=== PATIENT | male | born 1955 | race Caucasian/White ===

== ENCOUNTER 2016-11-10 02:40 | Emergency (ER) | payer OTHER ==
[~2016-11-10] VITALS: Ht 182.9 cm; Wt 110.0 kg
[~2016-11-10 02:40] MED LIST: ALBUAER2 INH; ASPI81TA28 PO; ATOR-24 PO; B-COCAP2 PO; CMD3 PO; FLEC50TA PO; FURO80TA63 PO; GABA-113 PO; HYDR100T12 PO; INSDGI SC; IPRA1AER2 INH; LSN40 PO; METO100T14 PO; POTA1CAP2 PO; VANC1INJ IV; WARF7.5T PO
[2016-11-10 02:45] VITALS: TEMP 36.9; Ht 182.9 cm; Wt 110.0 kg
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
[2016-11-10] MEDS ORDERED: FENTANYL CITRATE INJ 50 MCG/1 ML 2 ML VIAL IV ONE (03:15)
[2016-11-10 04:00] LABS: INR 2.9 (0.9-1.1); PARTIAL THROMBOPLASTIN RATIO 1.6; PROTHROMBIN TIME (PATIENT) 32.7 SECONDS (9.0-12.0)
[2016-11-10] MEDS ORDERED: PROTHROMBIN COMP CONC- KCENTRA 2,500 UNIT in SYRINGE 0 ML IV STA (06:07)
[2016-11-10] MEDS ORDERED: PHYTONADIONE INJ 10 MG in SODIUM CHLORIDE 0.9% 50ML 50 ML IV ONE (06:15)
[2016-11-10] MEDS ORDERED: PROTHROMBIN COMP CONC- KCENTRA 2,500 UNIT in SYRINGE 0 ML IV ONE (06:30)
[2016-11-10 06:42] LABS: BASO % 0.4 %; BASO ABS # 0.05 K/uL (0-0.2); COMPLETE YES; HEMATOCRIT 36.6 % (42-52); IG% 0.4 %; LYMPH % 9.3 %; LYMPH ABS # 1.08 K/uL (1.2-3.4); MEAN CELL VOLUME 91.5 fL (80-100); MEAN CORPUSCULAR HEMOGLOBIN 29.5 pg (25-34); MEAN CORPUSCULAR HGB CONC 32.2 g/dl (32-36); MEAN PLATELET VOLUME 10.8 fL (7.4-10.4); MONO % 8.4 %; NEUT % 79.5 %; PLATELET COUNT 324 K/uL (130-400); WHITE BLOOD COUNT 11.65 K/uL (4.8-10.8)
[2016-11-10 06:47] VITALS: BP 160/126; PULSE 93; O2SAT 94
[2016-11-10 06:47] LABS: BUN/CREATININE RATIO 20.5 (10-20); CALCIUM 7.9 mg/dl (8.5-10.1); CREATININE 4.1 mg/dl (0.60-1.40); MAGNESIUM 2.4 mg/dl (1.8-2.4); POTASSIUM 5.8 mmol/L (3.5-5.1)
--- NOTE | 2016-11-10 07:27 | DIAGNOSTIC IMAGING REPORT ---
CT OF THE HEAD WITHOUT CONTRAST CLINICAL HISTORY: Trauma. COMPARISON STUDY: Head CT June 28, 2016. CT DOSE: 1228.53 mGy.cm TECHNIQUE: Helical axial images of the head were obtained without IV contrast. Automated exposure control was utilized for the study. FINDINGS: This exam is mildly compromised by motion artifact. There is a moderate to large mixed attenuation left subdural hematoma that measures 1.3 cm in thickness. This hematoma overlies the left cerebral convexity and layers along the left aspect of the tentorium as well as portions of the falx. There is significant associated mass effect with 1.3 cm of rightward midline shift and compression of the left lateral ventricle. Sulcal effacement is noted. Subfalcine shift is noted. Old infarcts within the right cerebral and cerebellar hemispheres are noted. Calcific density within the right cerebellar hemisphere suggests an old infarct. This is chronic. There is no calvarial fracture although sensitivity is diminished given motion artifact. There is mild polypoid mucosal thickening of the right maxillary sinus. IMPRESSION: 1. Moderate to large mixed attenuation left subdural hematoma with significant associated mass effect, including 1.3 cm of rightward midline shift, compression of the left lateral ventricle and subfalcine shift. Neurosurgical consultation is recommended. 2. Multiple old infarcts. 3. No calvarial fracture identified. Study mildly compromised by motion artifact. Electronically signed by: Joseph Lucio M.D. 11/10/2016 7:26 AM Dictated Date/Time: 11/10/2016 7:19 AM
--- NOTE | 2016-11-10 07:31 | DIAGNOSTIC IMAGING REPORT ---
RIGHT ANKLE 2 VIEWS CLINICAL HISTORY: Trauma and deformity. FINDINGS: AP and lateral views of the right ankle are obtained. No prior studies are available for comparison at the time of dictation. There is a comminuted fracture with distracted fragments involving the distal fibular shaft. There is likely a fracture involving the posterior tibial plafond. There is posterior dislocation of the talus at the tibiotalar joint. This is posteriorly distracted by at least 3 cm. There is significant associated joint effusion and overlying soft tissue edema. A plantar calcaneal enthesophyte is observed. IMPRESSION: Fracture/dislocation of the right ankle as above. Electronically signed by: Trey Gil M.D. 11/10/2016 7:30 AM Dictated Date/Time: 11/10/2016 7:28 AM
--- NOTE | 2016-11-10 07:36 | DIAGNOSTIC IMAGING REPORT ---
RIGHT ANKLE 2 VIEWS CLINICAL HISTORY: Postreduction examination. FINDINGS: AP and lateral views of the right ankle compared to study performed earlier the same day 11/10/2016.The examination is performed through a splint, obscuring fine bony detail. There is improved alignment of a comminuted fracture with distracted fragments involving the distal fibular shaft as compared to the earlier examination. There is also likely a fracture involving the posterior tibial plafond. There is persistent posterior dislocation of the talus at the tibiotalar joint which has improved from previous. The talus is distracted posteriorly by approximately 1.5 cm. There is also widening of the medial joint space by approximately 8 mm. There is significant associated joint effusion and overlying soft tissue edema. A plantar calcaneal enthesophyte is observed. IMPRESSION: Improved alignment of a fracture/dislocation of the right ankle as compared to today's earlier examination. See above. Electronically signed by: Trey Gil M.D. 11/10/2016 7:35 AM Dictated Date/Time: 11/10/2016 7:33 AM
[2017-01-15] MEDS ORDERED: CARV6.252 PO (11:10)
[2017-01-15] MEDS ORDERED: ACET-1256 PO (11:14)
[2017-01-15] MEDS ORDERED: LORA-741 PO (11:18)
[2017-01-15] MEDS ORDERED: insulin novolog (11:18)
[2017-01-15] MEDS ORDERED: LEVE250T PO (11:20)
[2017-01-15] MEDS ORDERED: SENN-61 PO (11:24)
[2017-01-15] MEDS ORDERED: PANT40TA PO (11:24)
[2017-01-15] MEDS ORDERED: QUET1TAB34 PO (11:24)
[2017-01-15] MEDS ORDERED: [UNRECOGNIZED DRUG - CODE] (11:24)
[2017-01-15] MEDS ORDERED: QUET1TAB30 PO (11:24)
[2017-01-15] MEDS ORDERED: [UNRECOGNIZED DRUG - OTHER] IV (11:34)
== END 2016-11-10 06:48 | disposition short-term general hospital (02) ==
LOC: C.EDB 02:41
DX: S06.5X0A Traumatic subdural hemorrhage without loss of consciousness, initial encounter (principal); S82.451A Displaced comminuted fracture of shaft of right fibula, initial encounter for closed fracture; S93.04XA Dislocation of right ankle joint, initial encounter; E66.9 Obesity, unspecified; E11.9 Type 2 diabetes mellitus without complications; I48.91 Unspecified atrial fibrillation; N18.6 End stage renal disease; I12.0 Hypertensive chronic kidney disease with stage 5 chronic kidney disease or end stage renal disease; J45.909 Unspecified asthma, uncomplicated; Z79.01 Long term (current) use of anticoagulants; Z79.4 Long term (current) use of insulin; Z79.82 Long term (current) use of aspirin; Z79.899 Other long term (current) drug therapy; Z99.2 Dependence on renal dialysis; Z83.3 Family history of diabetes mellitus; Z82.49 Family history of ischemic heart disease and other diseases of the circulatory system; W19.XXXA Unspecified fall, initial encounter

== ENCOUNTER 2017-04-23 09:28 | Emergency (ER) | payer OTHER ==
[~2017-04-23] VITALS: Ht 182.9 cm; Wt 112.0 kg
[~2017-04-23 09:28] MED LIST changes: +ACET-1256 PO; -ASPI81TA28 PO; -ATOR-24 PO; +CARV6.252 PO; -CMD3 PO; -FLEC50TA PO; -GABA-113 PO; -HYDR100T12 PO; -INSDGI SC; -IPRA1AER2 INH; +LEVE250T PO; +LORA-741 PO; -LSN40 PO; +PANT40TA PO; +QUET1TAB30 PO; +QUET1TAB34 PO; +SENN-61 PO; -VANC1INJ IV; -WARF7.5T PO; +[UNRECOGNIZED DRUG - CODE]; +[UNRECOGNIZED DRUG - OTHER] IV; +insulin novolog
[2017-04-23 09:42] VITALS: TEMP 36.5; Ht 182.9 cm; Wt 112.0 kg
[2017-04-23 09:48] VITALS: O2SAT 95
--- NOTE | 2017-04-23 09:50 | EMERGENCY ROOM VISIT NOTE ---
History Report prepared by [place]: Kristan Hartman Under the Supervision of: Dr. Ludin Sheppard M.D. First contact with patient: 09:33 Stated Complaint: SOB History of Present Illness The patient is a 61 year old male who presents to the Emergency Room with complaints of constant shortness of breath beginning earlier this morning. The patient was at his dialysis appointment in [place] this morning. About 30 minutes into dialysis, he developed shortness of breath and was sent to the ED by ambulance for further evaluation. He is currently feeling better on 4L of O2. He is not typically on O2 at home. The patient denies any chest pain or abdominal pain. He was weighed at his appointment this morning and states that he was not overweight. His abdomen does not feel more distended than usual. Source of History: patient, EMS Onset: this morning Position: chest (respiratory) Quality: other (shortness of breath) Timing: constant Modifying Factors (Worsening): other (dialysis) Modifying Factors (Relieving): oxygen Associated Symptoms: No chest pain, No abdominal pain Review of Systems All systems have been listed, reviewed, and are negative other than those previously mentioned. Please see Additional Medical History Sheet. Past Medical & Surgical Medical Problems: (1) Anemia (2) Ascites (3) Asthma (4) Bacteremia (5) CHF exacerbation (6) Chronic kidney disease, stage 3 (moderate) (7) Cirrhosis (8) Diabetes mellitus (9) End-stage renal disease on hemodialysis (10) Fever (11) HTN (hypertension) (12) Hypertension (13) Leg edema (14) Microscopic hematuria (15) Nephrotic syndrome (16) Obesity (17) Secondary hyperparathyroidism of renal origin Family History Cancer Diabetes mellitus Hypertension Social History Smoking Status: Never Smoker Alcohol Use: none Drug Use: none Marital Status: Housing Status: lives with significant other Occupation Status: retired Current/Historical Medications Scheduled Acetaminophen (Tylenol), 1 TAB PO Q8 Calcium Acetate (Phoslo 667 Mg), 2 CAPSULES PO TIDM Carvedilol (Coreg), 6.25 MG PO BID Insulin Glargine (Toujeo Solostar), 10 UNITS SC HS Lorazepam (Ativan), 0.5 MG PO Q6H Metoprolol Tartrate (Lopressor) (Lopressor), 100 MG PO DAILY Pantoprazole (Protonix), 40 MG PO DAILY Quetiapine Fumarate (Seroquel), 100 MG PO QPM Quetiapine Fumarate (Seroquel), 25 MG PO QAM Senna (Senokot), 1 TAB PO DAILY Vitamin B Cmplx/Vitc/Folic Ac (Nephrocaps), 1 CAP PO DAILY Allergies Coded Allergies: No Known Allergies (Unverified , 01/15/17) Physical Exam Vital Signs Date Time Temp Pulse Resp B/P (MAP) Pulse Ox O2 Delivery O2 Flow Rate FiO2 04/23/17 13:23 68 16 111/66 86 Room Air 04/23/17 11:56 87 Room Air 04/23/17 11:20 77 16 151/87 97 Room Air 04/23/17 09:48 95 Nasal Cannula 4.0 04/23/17 09:48 88 04/23/17 09:42 88 Room Air 04/23/17 09:42 36.5 104 16 180/97 88 Room Air Physical Exam GENERAL: Patient awake, alert, oriented x 3. Patient follows commands. Patient does not appear toxic. Patient is adequately hydrated and well- nourished. SKIN: No erythema, pallor, cyanosis or rash HEENT: Normal head, pupils equal, reactive to light and accommodation. Oral cavity and posterior pharynx appear normal. Neck: Without adenopathy, no neck vein distention. LUNGS: Rales left base. No wheezes, no rhonchi. HEART: Irregularly irregular rhythm. No murmurs. No gallops. No rubs ABDOMEN: Markedly distended with a well-healed mid-line scar. No masses, no rebound, no hepatomegaly or splenomegaly. EXTREMITIES: No signs of trauma. No pedal or pretibial edema. No calf or thigh tenderness. NEUROLOGIC: Cranial nerves II-XII within normal limits. No gross motor sensory function deficits. Medical Decision & Procedures ER Provider Diagnostic Interpretation: Radiology results as stated below per my review and radiologist interpretation: CHEST 2 VIEWS ROUTINE HISTORY: 61 years Male CHEST PAIN COMPARISON: Chest radiograph 06/30/2016 TECHNIQUE: Portable upright AP view of the chest FINDINGS: Lungs are hypoinflated with bronchovascular crowding. Cardiac silhouette is enlarged, likely accentuated by technique. Left subclavian stent graft is noted. There has been interval removal of the previously seen right IJ hemodialysis catheter. There is no pneumothorax or pleural effusion. Linear subsegmental bibasilar opacities are seen. Bones are grossly intact. IMPRESSION: Hypoinflation with subsegmental bibasilar atelectasis. The above report was generated using voice recognition software. It may contain grammatical, syntax or spelling errors. Electronically signed by: Danish Jordan M.D. 04/23/2017 11:11 AM Dictated Date/Time: 04/23/2017 11:10 AM Laboratory Results 04/23/17 10:15 04/23/17 10:15 Test 04/23/17 10:15 Red Blood Count 3.51 M/uL (4.7-6.1) Mean Corpuscular Volume 93.4 fL (80-100) Mean Corpuscular Hemoglobin 29.3 pg (25-34) Mean Corpuscular Hemoglobin Concent 31.4 g/dl (32-36) RDW Standard Deviation 55.7 fL (36.4-46.3) RDW Coefficient of Variation 16.3 % (11.5-14.5) Mean Platelet Volume 9.1 fL (7.4-10.4) Anion Gap 4.0 mmol/L (3-11) Est Creatinine Clear Calc Drug Dose 25.7 ml/min Estimated GFR () 18.1 Estimated GFR (Non- 15.6 BUN/Creatinine Ratio 16.0 (10-20) Calcium Level 8.8 mg/dl (8.5-10.1) Troponin I 0.029 ng/ml (0-0.045) Laboratory results as stated above per my review. ECG Indication: SOB/dyspnea Rate (beats per minute): 92 Rhythm: sinus rhythm Findings: LBBB (incomplete), PAC, prolonged QT ED Course 09: Past medical records reviewed. The patient was evaluated in room A3. A complete history and physical examination was performed. 1147: According to the dialysis unit in [place], the patient was complaining of chest pain and had a low pulse ox. He turned roth and they could not get his pulse ox to improve on a non-rebreather. According to the patient, he did not have any chest pain. His states that he has a history of anxiety and this is typical of his anxiety. The patient also normally has a low pulse ox. He has refused admission to the hospital for this issue multiple times in the past. 1255: I reassessed the patient at this time. He is doing well and resting comfortably. I discussed the results and treatment plan with the patient and his . I answered all pertaining questions that they had. They expressed understanding and verbalized agreement. The patient does not wish to stay in the hospital, and he will be discharged home. Medical Decision I considered multiple diagnoses including COPD with exacerbation, pneumonia, myocardial infarction, chest wall pain, pericarditis, myocarditis, aortic emergencies, pulmonary embolism, congestive heart failure, GI causes, and other significant cardiopulmonary disorders. Multiple labs, EKG and imaging were obtained. Please see above. The patient does not appear to be in failure. His chest x-ray is not much different than in the past. The patient is slightly anemic. Report from the [place] dialysis unit states that the patient was hypoxic and turned ashen clinton. The patient states that he did not turn clinton and that he frequently has low pulse oximetry readings. He is not on oxygen at home. He is not short of breath now. The patient denies being short of breath earlier and denies chest pain. Patient does have a history of panic attacks and believes that his symptoms this morning were related to panic. He now feels fine and refuses admission. The patient was observed in the ED for over 3 and half hours and remained stable. I discussed care with the patient and with his . They were both told to have the patient return immediately if he is having any more symptoms. Medication Reconcilliation Current Medication List: was personally reviewed by me Blood Pressure Screening Patient's blood pressure: Elevated blood pressure Blood pressure disposition: Referred to PCP Impression Primary Impression: Panic attack Additional Impressions: Anemia Renal failure Scribe Attestation The scribe's documentation has been prepared under my direction and personally reviewed by me in its entirety. I confirm that the note above accurately reflects all work, treatment, procedures, and medical decision making performed by me. Departure Information Dispostion Home / Self-Care Referrals Danilo Mosquera PA-C (PCP) Forms HOME CARE DOCUMENTATION FORM, IMPORTANT VISIT INFORMATION Additional Instructions Continue all of your current medications as prescribed. Follow-up with dialysis on Thursday. Return here sooner if you develop shortness of breath or chest pain. Problem Qualifiers Additional Impressions: Anemia Anemia type: unspecified type Qualified Codes: D64.9 - Anemia, unspecified Renal failure Renal failure chronicity: unspecified chronicity Qualified Codes: N19 - Unspecified kidney failure
[2017-04-23] MEDS ORDERED: INSU1.2I SC (09:53)
[2017-04-23] MEDS ORDERED: CALC667C4 PO (09:53)
[2017-04-23] MEDS ORDERED: B-CO1CAP17 PO (09:53)
[2017-04-23 10:29] LABS: HEMATOCRIT 32.8 % (42-52); MEAN CELL VOLUME 93.4 fL (80-100); MEAN CORPUSCULAR HEMOGLOBIN 29.3 pg (25-34); MEAN CORPUSCULAR HGB CONC 31.4 g/dl (32-36); MEAN PLATELET VOLUME 9.1 fL (7.4-10.4); PLATELET COUNT 276 K/uL (130-400); RED BLOOD COUNT 3.51 M/uL (4.7-6.1); WHITE BLOOD COUNT 6.34 K/uL (4.8-10.8)
[2017-04-23 10:46] LABS: CALCIUM 8.8 mg/dl (8.5-10.1); CREATININE 3.9 mg/dl (0.60-1.40)
--- NOTE | 2017-04-23 11:12 | DIAGNOSTIC IMAGING REPORT ---
CHEST 2 VIEWS ROUTINE HISTORY: 61 years Male CHEST PAIN COMPARISON: Chest radiograph 06/30/2016 TECHNIQUE: Portable upright AP view of the chest FINDINGS: Lungs are hypoinflated with bronchovascular crowding. Cardiac silhouette is enlarged, likely accentuated by technique. Left subclavian stent graft is noted. There has been interval removal of the previously seen right IJ hemodialysis catheter. There is no pneumothorax or pleural effusion. Linear subsegmental bibasilar opacities are seen. Bones are grossly intact. IMPRESSION: Hypoinflation with subsegmental bibasilar atelectasis. The above report was generated using voice recognition software. It may contain grammatical, syntax or spelling errors. Electronically signed by: Danish Jordan M.D. 04/23/2017 11:11 AM Dictated Date/Time: 04/23/2017 11:10 AM
[2017-04-23 13:23] VITALS: BP 111/66; PULSE 68; O2SAT 86
== END 2017-04-23 13:29 | disposition home or self-care (01) ==
LOC: EDBD 09:28 → C.EDA 09:31
DX: F41.0 Panic disorder [episodic paroxysmal anxiety] (principal); D64.9 Anemia, unspecified; N18.6 End stage renal disease; E11.22 Type 2 diabetes mellitus with diabetic chronic kidney disease; I12.0 Hypertensive chronic kidney disease with stage 5 chronic kidney disease or end stage renal disease; R18.8 Other ascites; J45.909 Unspecified asthma, uncomplicated; I50.9 Heart failure, unspecified; K74.60 Unspecified cirrhosis of liver; E66.9 Obesity, unspecified; Z99.2 Dependence on renal dialysis; N25.81 Secondary hyperparathyroidism of renal origin; Z83.3 Family history of diabetes mellitus; Z82.49 Family history of ischemic heart disease and other diseases of the circulatory system; Z79.4 Long term (current) use of insulin; I44.7 Left bundle-branch block, unspecified

== ENCOUNTER → 2017-07-20 | Day surgery (SDC) | payer OTHER ==
[~2017-07-20] MED LIST changes: -ALBUAER2 INH; +B-CO1CAP17 PO; -B-COCAP2 PO; +CALC667C4 PO; +CEFAZOLIN 1000MG/55 ML D5W IV SCH; +D5W AND 1/4NSS 1,000 ML IV SCH; -FURO80TA63 PO; +INSU1.2I SC; -LEVE250T PO; -POTA1CAP2 PO; -[UNRECOGNIZED DRUG - CODE]; -[UNRECOGNIZED DRUG - OTHER] IV; -insulin novolog
--- NOTE | 2017-07-20 06:27 | History and Physical ---
History & Physical Date of Service Jul 20, 2017. History & Physical CC: Malfunctioning left arm fistula History of Present Illness The patient is a 60 year old male with multiple medical problems, including ESRD on HD now has a malfunctioning left arm fistula. He is admitted for a fistulogram with possible intervention. Denies PEDROZA, fever, chills, chest pain, abd pain, N/V, rest pain, claudication, other complaints. Allergies Coded Allergies: No Known Allergies (Unverified , 04/24/16) Home Medications Scheduled Aspirin (Aspirin Ec), 81 MG PO DAILY Atorvastatin (Lipitor), 40 MG PO DAILY Bumetanide (Bumetanide), 2 MG PO BID17 Clopidogrel Bisulfate (Plavix), 75 MG PO DAILY Gabapentin (Neurontin), 1,200 MG PO QPM Hydralazine HCl (Hydralazine HCl), 100 MG PO TID Insulin Glargine (Lantus Solostar), 20 UNIT SC HS Metoprolol Tartrate (Metoprolol Tartrate), 50 MG PO BID Potassium Chloride (Potassium Chloride Er), 1 CAP PO BID Sitagliptin Phosphate (Januvia), 100 MG PO DAILY Scheduled PRN Albuterol (Ventolin Hfa), 2 PUFFS INH Q4 PRN PRN for SOB/Wheezing Problem List Medical Problems: (1) Ascites (2) Asthma (3) CHF exacerbation (4) Chronic kidney disease, stage 3 (moderate) (5) Cirrhosis (6) Diabetes mellitus (7) HTN (hypertension) (8) Hypertension (9) Leg edema (10) Microscopic hematuria (11) Nephrotic syndrome (12) Obesity Surgical / Medical History Hx Cardiac Surgery: Yes (HEART MONITOR PLACED) Hx Abdominal Surgery: No Hx Cancer Surgery: No Hx Thoracic Surgery: No Hx Orthopedic: Yes (INFECTED LEFT FOOT) Hx Urinary Tract Surgery: No HX Other Surgery: No Past Medical/Surgical History: Diabetes, Heart Disease, High Cholesterol, Hypertension, Kidney Disease Family History Cancer Diabetes mellitus Hypertension Social History Smoking Status: Never Smoker Hx Tobacco Use In Past Year?: No Hx Alcohol Use - Type & Amnt: No Hx Substance Use -Type & Amnt: No Review of Systems Constitutional: + fatigue, No chills, No fever, No malaise Skin: No change in color Eyes: No visual changes ENMT: No sore throat Respiratory: + GLORIA, + orthopnea, + short of breath, No cough, No hemoptysis Cardiovascular: + edema, No chest pain, No intermittent claudication, No palpitations, No syncope Gastrointestinal: No abdominal pain, No nausea, No vomiting Neurologic: No dizziness, No headache, No numbness, No tingling Physical Exam Constitutional: General Apperance: well-nourished, well-developed, obese Level of Distress: NAD, Psychiatric: Mental Status: active & alert, normal mood, normal affect Orientation: oriented except where noted, to time, to place, to person Memory: recent memory normal, remote memory normal Head: normocephalic, atraumatic Eyes: EOM: EOMI ENMT: normal ENT inspection, hearing grossly normal Neck: supple, trachea midline Lungs: Respiratory effort: normal Auscultation: no rhonchi, clear Cardiovascular: Apical Impulse: not displaced Heart Auscultation: RRR, no rubs, no gallops Peripheral Pulses: Pulses: full and equal, in all extremities except if noted Bruits: none appreciated Carotid Pulse: normal on the left, normal on the right Brachial Pulses: normal on the left, normal on the right. Excellent LUE AVF thrill/bruit. Mild local ecchymosis noted. No hematoma. Radial Pulse: normal on the left, normal on the right Femoral Pulse: decreased on the left, decreased on the right Posterior Tibialis Pulse: decreased on the left, decreased on the right Dorsalis Pedis Pulse: decreased on the left, decreased on the right Abdomen: Bowel Sounds: normal Inspection & Palpation: soft, non-distended, no tenderness, guarding & rebound Musculoskeletal: normal strength (5/5 throughout), normal tone Extremities: Upper Right: no cyanosis, no varicosities, no edema Upper Left: no cyanosis, no varicosities, no edema Lower Right: no cyanosis, no varicosities, no palpable cord, no edema Lower Left: no cyanosis, no varicosities, no palpable cord, no edema Neurologic: Cranial Nerves: grossly intact Sensation: grossly intact Assessment and Plan Imp: ESRD on HD, malfunctioning LUE AVF Plan: Patient admitted for a fistulogram with possible intervention. I have discussed the risks options and benefits of the procedure with the patient. The patient understands the risks options and benefits and agrees to the procedure.
== END | disposition home or self-care (01) ==
LOC: C.ACU 07:40
PROVIDERS: ATTEND Surgery Vascular Surgery
DX: T82.590A Other mechanical complication of surgically created arteriovenous fistula, initial encounter (principal); E11.22 Type 2 diabetes mellitus with diabetic chronic kidney disease; I13.2 Hypertensive heart and chronic kidney disease with heart failure and with stage 5 chronic kidney disease, or end stage renal disease; N18.6 End stage renal disease; I50.9 Heart failure, unspecified; J45.909 Unspecified asthma, uncomplicated; K74.60 Unspecified cirrhosis of liver; E66.9 Obesity, unspecified; Z99.2 Dependence on renal dialysis; Z79.82 Long term (current) use of aspirin; Z79.4 Long term (current) use of insulin; Z79.899 Other long term (current) drug therapy

== ENCOUNTER → 2017-08-03 | Day surgery (SDC) | payer OTHER ==
[~2017-08-03] VITALS: Ht 180.3 cm; Wt 95.5 kg
[~2017-08-03] MED LIST changes: +CEFAZOLIN 1000MG IV PUSH 5 ML IV SCH; -CEFAZOLIN 1000MG/55 ML D5W IV SCH; +CEFAZOLIN 2000MG IV PUSH 10 ML IV SCH; -D5W AND 1/4NSS 1,000 ML IV SCH; +D5W AND 1/4NSS 1000 ML IV SCH; +FENTANYL CITRATE INJ 50 MCG/1 ML 2 ML VIAL IV ONE; +FENTANYL CITRATE INJ 50 MCG/1 ML 2 ML VIAL ONE; +LIDOCAINE HCL 1% 20 ML VIAL INJ ONE; +MIDAZOLAM HCL 1 MG/ML 2ML VIAL IV ONE; +MIDAZOLAM HCL 1 MG/ML 2ML VIAL ONE; +OPTIRAY 300 IV ONE
[2017-08-03 09:20] VITALS: BP 180/93; PULSE 77; TEMP 36.4; O2SAT 94; Ht 180.3 cm; Wt 95.5 kg
--- NOTE | 2017-08-03 09:32 | History and Physical ---
History & Physical Date of Service Aug 03, 2017. History & Physical CC: Malfunctioning left arm fistula History of Present Illness The patient is a 60 year old male with multiple medical problems, including ESRD on HD now has a malfunctioning left arm fistula. He is admitted for a fistulogram with possible intervention. Denies PEDROZA, fever, chills, chest pain, abd pain, N/V, rest pain, claudication, other complaints. Allergies Coded Allergies: No Known Allergies (Unverified , 04/24/16) Home Medications Scheduled Aspirin (Aspirin Ec), 81 MG PO DAILY Atorvastatin (Lipitor), 40 MG PO DAILY Bumetanide (Bumetanide), 2 MG PO BID17 Clopidogrel Bisulfate (Plavix), 75 MG PO DAILY Gabapentin (Neurontin), 1,200 MG PO QPM Hydralazine HCl (Hydralazine HCl), 100 MG PO TID Insulin Glargine (Lantus Solostar), 20 UNIT SC HS Metoprolol Tartrate (Metoprolol Tartrate), 50 MG PO BID Potassium Chloride (Potassium Chloride Er), 1 CAP PO BID Sitagliptin Phosphate (Januvia), 100 MG PO DAILY Scheduled PRN Albuterol (Ventolin Hfa), 2 PUFFS INH Q4 PRN PRN for SOB/Wheezing Problem List Medical Problems: (1) Ascites (2) Asthma (3) CHF exacerbation (4) Chronic kidney disease, stage 3 (moderate) (5) Cirrhosis (6) Diabetes mellitus (7) HTN (hypertension) (8) Hypertension (9) Leg edema (10) Microscopic hematuria (11) Nephrotic syndrome (12) Obesity Surgical / Medical History Hx Cardiac Surgery: Yes (HEART MONITOR PLACED) Hx Abdominal Surgery: No Hx Cancer Surgery: No Hx Thoracic Surgery: No Hx Orthopedic: Yes (INFECTED LEFT FOOT) Hx Urinary Tract Surgery: No HX Other Surgery: No Past Medical/Surgical History: Diabetes, Heart Disease, High Cholesterol, Hypertension, Kidney Disease Family History Cancer Diabetes mellitus Hypertension Social History Smoking Status: Never Smoker Hx Tobacco Use In Past Year?: No Hx Alcohol Use - Type & Amnt: No Hx Substance Use -Type & Amnt: No Review of Systems Constitutional: + fatigue, No chills, No fever, No malaise Skin: No change in color Eyes: No visual changes ENMT: No sore throat Respiratory: + GLORIA, + orthopnea, + short of breath, No cough, No hemoptysis Cardiovascular: + edema, No chest pain, No intermittent claudication, No palpitations, No syncope Gastrointestinal: No abdominal pain, No nausea, No vomiting Neurologic: No dizziness, No headache, No numbness, No tingling Physical Exam Constitutional: General Apperance: well-nourished, well-developed, obese Level of Distress: NAD, Psychiatric: Mental Status: active & alert, normal mood, normal affect Orientation: oriented except where noted, to time, to place, to person Memory: recent memory normal, remote memory normal Head: normocephalic, atraumatic Eyes: EOM: EOMI ENMT: normal ENT inspection, hearing grossly normal Neck: supple, trachea midline Lungs: Respiratory effort: normal Auscultation: no rhonchi, clear Cardiovascular: Apical Impulse: not displaced Heart Auscultation: RRR, no rubs, no gallops Peripheral Pulses: Pulses: full and equal, in all extremities except if noted Bruits: none appreciated Carotid Pulse: normal on the left, normal on the right Brachial Pulses: normal on the left, normal on the right. Excellent LUE AVF thrill/bruit. Mild local ecchymosis noted. No hematoma. Radial Pulse: normal on the left, normal on the right Femoral Pulse: decreased on the left, decreased on the right Posterior Tibialis Pulse: decreased on the left, decreased on the right Dorsalis Pedis Pulse: decreased on the left, decreased on the right Abdomen: Bowel Sounds: normal Inspection & Palpation: soft, non-distended, no tenderness, guarding & rebound Musculoskeletal: normal strength (5/5 throughout), normal tone Extremities: Upper Right: no cyanosis, no varicosities, no edema Upper Left: no cyanosis, no varicosities, no edema Lower Right: no cyanosis, no varicosities, no palpable cord, no edema Lower Left: no cyanosis, no varicosities, no palpable cord, no edema Neurologic: Cranial Nerves: grossly intact Sensation: grossly intact Assessment and Plan Imp: ESRD on HD, malfunctioning LUE AVF Plan: Patient admitted for a fistulogram with possible intervention. I have discussed the risks options and benefits of the procedure with the patient. The patient understands the risks options and benefits and agrees to the procedure.
--- NOTE | 2017-08-03 09:33 | Procedure Note ---
Pre-Mod Sedation Assessment General Date of Moderate Sedation: Aug 03, 2017. Pre-Sedation Airway Assessment Smoking Status: Never Smoker Mallampati Classification: Class I ASA Classification: Class III Notes The planned sedation has been discussed with the patient and consent obtained. I have identified the patient, determined the appropriateness of sedation and have assessed the patient immediately prior to the procedure. All medicine(s) and interventions are by my order.
[2017-08-03 10:38] VITALS: BP 180/93; PULSE 77; TEMP 36.4; O2SAT 94
--- NOTE | 2017-08-03 11:38 | [facility] Post Operative Brief Note ---
Immediate Operative Summary Operative Date Aug 03, 2017. Pre-Operative Diagnosis Malfunctioning Fistula Post-Operative Diagnosis Same Procedure(s) Performed Left Arm Fistulogram Percutaneous Transluminal Angioplasty Peripheral Venous Moderate Sedation [id number] Surgeon Alis Director Institution Surgeon(s) None Estimated Blood Loss 3 Findings venous stenosis cephalic vein Specimens None Anesthesia Local with sedation Complication(s) None Disposition
--- NOTE | 2017-08-03 11:39 | Procedure Note ---
Post-Moderate Sedation Plan General Date of Moderate Sedation Aug 03, 2017. Vital Signs: Vital Signs Past 12 Hours Date Time Temp Pulse Resp B/P (MAP) Pulse Ox O2 Delivery O2 Flow Rate FiO2 08/03/17 09:20 36.4 77 18 180/93 (122) 94 Room Air Review - Discharge Plan Post Moderate Sedation Plan: On clinical assessment, the patient appears to have tolerated the conscious sedation without complications. Patient is recovering as anticipated. Patient will continue to be monitored by nursing and may be discharged when conscious sedation discharge criteria are met.
--- NOTE | 2017-08-03 11:41 | Discharge Instructions ---
Discharge Instructions Date of Service Aug 03, 2017. Visit Reason for Visit: End Stage Renal Disease -On Hemodialysis Discharge Discharge Diagnosis / Problem: Malfunctioning fistula Discharge Goals Goal(s): Therapeutic intervention Activity Recommendations Activity Limitations: per Instructions/Follow-up section Call [phone] with any questions or concerns. SPECIAL CARE INSTRUCTIONS: Medications: * Continue to take your medications as directed. If you have been given a prescription for Plavix, please fill it immediately and take as directed. Incision Care: * Your puncture site may have some bruising and minor swelling for about one week. * You will have a small dressing covering your puncture site. You may remove the dressing after 24 hours and shower. You may let the warm soapy water run over it, but be sure to dry the puncture site well and keep it dry. * DO NOT IMMERSE THE INCISION IN A TUB/POOL/etc. UNTIL HEALED. * Puncture sites should be kept covered with a band-aid until it begins to heal. Restrictions: * Depending on whether you leg or arm was punctured to access the arteries, you will be required to lay flat, hold your arm still, or both, for about 4 hours after the procedure to prevent bleeding. * Limit your activity for the first 48 hours. You may walk and go up and down steps. Avoid excessive bending or movement at the puncture site. Possible Complications: * Excessive Swelling - after blood flow is improved you may notice increased swelling in the lower legs. This is a normal response. This usually depends on the amount of blockages in the leg, how long they have been there prior to your procedure and how much blood flow was restored. Elevating your legs will help to improve this. Please notify our office ([phone] ) if the swelling does not go away after lying in bed overnight. * Infection/Drainage/Bleeding - Drainage or bleeding from the puncture site should be minimal. If you have excessive bleeding or drainage, call our office ([phone]) right away. * Pain - You may experience some mild pain or soreness at your puncture site. If your pain does not improve, please contact our office ([phone]). Call your doctor and seek emergent treatment if you develop: * Temperature above 101 degrees * Any fever or chills * Any redness or purulent drainage from the puncture site * Any new dusky/blue colored toes or feet with coolness or sharp or aching pain. SKIN IRRITATION: * You may experience some redness and/or swelling in the area where radiation was administered. If any skin irritation occurs, please contact your family physician. FOLLOW UP VISIT: Keep any scheduled doctor appointments. Anesthesia . Post Anesthesia Instructions: If you have had General Anesthesia or IV Sedation: * Do not drive today. * Resume driving when surgeon permits. * Do not make important decisions or sign legal documents today. * Call surgeon for: 1. Temperature elevations greater than 101 degrees F. 2. Uncontrollable pain. 3. Excessive bleeding. 4. Persistent nausea and vomiting. 5. Medication intolerance (nausea, vomiting or rash). * For nausea and vomiting use only clear liquids such as: tea, soda, bouillon until nausea subsides, then gradually increase diet as tolerated. * If you have any concerns or questions, call your surgeon's office. If physician is unavailable and it is an emergency, call 911 or go to the nearest emergency room. . Diet Recommendations Recommended Home Diet: resume previous diet Procedures Procedures Performed: Left Arm Fistulogram Percutaneous Transluminal Angioplasty Peripheral Venous Moderate Sedation [id number] Pending Studies Studies pending at discharge: no Medical Emergencies . Who to Call and When: Medical Emergencies: If at any time you feel your situation is an emergency, please call 911 immediately. . Non-Emergent Contact Non-Emergency issues call your: Surgeon . . "Provider Documentation" section prepared by Zachary Snell. .
[2017-08-03 11:47] VITALS: BP 177/86; PULSE 73; TEMP 36.4; O2SAT 92
--- NOTE | 2017-08-03 11:49 | [facility] Operative Report ---
Operative Report Operative Date Aug 03, 2017. Pre-Operative Diagnosis Malfunctioning Fistula Post-Operative Diagnosis Same Procedure(s) Performed Left Arm Fistulogram Percutaneous Transluminal Angioplasty Peripheral Venous Moderate Sedation 8812-0742 Surgeon Alis Treatment Specialist Surgeon(s) None Estimated Blood Loss 3 Findings stenosis of cephalic vein Specimens None Anesthesia Local with sedation Complication(s) None Disposition Indications This is a 62-year-old male with a fistula in his left upper arm. Dialysis is having trouble with running his dialysis through the fistula. He is admitted for a fistulogram with possible intervention. I have discussed the risks options and benefits of the procedure with the patient. The patient understands the risks options and benefits and agrees to the procedure. Description of Procedure The patient was taken to the angiogram suite and placed in the supine position. The left arm was then prepped and draped in a sterile manner. Local anesthetic was administered and a percutaneous puncture was then made of the proximal portion of the left arm AV fistula using micropuncture technique. Micropuncture wire and sheath were then inserted. A fistulogram was then performed. The fistulogram showed a stenosis in the midportion of the arm in the large part of the fistula. This appeared to be adherent thrombus to the large part of the fistula. The flow lumen at this area was still approximately 8 mm in size. Further up in the cephalic vein there was a stenosis approximately 60% in diameter of the outflow vein. This was a long 50 mm length stenoses. It was decided to treat this area. An 035 wire was then inserted. The sheath was exchanged to a 6 Maldivian sheath. A 6 x 60 balloon was then used. This area was ballooned. There was very little increase in diameter post ballooning. We then used a 10 x 6 balloon. The area was reballooned twice with a 10 x 6 balloon. Better results were seen. Only approximately 10% residual narrowing in this portion of the vein was left. The vein is widely patent and the same diameter as the rest of the outflow vessel. An excellent thrill was felt at that time. The sheath was then pulled and pressure was applied. Adequate hemostasis was obtained. The patient left the angiogram suite in good condition and tolerated the procedure well. I attest to the content of the Intraoperative Record and any orders documented therein. Any exceptions are noted below.
[2017-08-03 12:04] VITALS: BP 186/89; PULSE 73; TEMP 36.8; O2SAT 92
[2017-08-03 12:22] VITALS: BP 184/84; PULSE 74; TEMP 36.8; O2SAT 92
== END | disposition home or self-care (01) ==
LOC: C.ACU 08:21
PROVIDERS: ATTEND Surgery Vascular Surgery
DX: T82.590A Other mechanical complication of surgically created arteriovenous fistula, initial encounter (principal); E11.22 Type 2 diabetes mellitus with diabetic chronic kidney disease; Y83.2 Surgical operation with anastomosis, bypass or graft as the cause of abnormal reaction of the patient, or of later complication, without mention of misadventure at the time of the procedure; I13.2 Hypertensive heart and chronic kidney disease with heart failure and with stage 5 chronic kidney disease, or end stage renal disease; N18.6 End stage renal disease; E66.9 Obesity, unspecified; Z99.2 Dependence on renal dialysis; Z79.4 Long term (current) use of insulin

== ENCOUNTER 2017-10-30 10:29 | Day surgery (SDC) | payer OTHER ==
--- NOTE | 2017-10-16 05:52 | History and Physical ---
History & Physical Date of Service Oct 16, 2017. History & Physical CC: Malfunctioning left arm fistula History of Present Illness The patient is a 60 year old male with multiple medical problems, including ESRD on HD now has a malfunctioning left arm fistula. He is admitted for a fistulogram with possible intervention. Denies PEDROZA, fever, chills, chest pain, abd pain, N/V, rest pain, claudication, other complaints. Allergies Coded Allergies: No Known Allergies (Unverified , 04/24/16) Home Medications Scheduled Aspirin (Aspirin Ec), 81 MG PO DAILY Atorvastatin (Lipitor), 40 MG PO DAILY Bumetanide (Bumetanide), 2 MG PO BID17 Clopidogrel Bisulfate (Plavix), 75 MG PO DAILY Gabapentin (Neurontin), 1,200 MG PO QPM Hydralazine HCl (Hydralazine HCl), 100 MG PO TID Insulin Glargine (Lantus Solostar), 20 UNIT SC HS Metoprolol Tartrate (Metoprolol Tartrate), 50 MG PO BID Potassium Chloride (Potassium Chloride Er), 1 CAP PO BID Sitagliptin Phosphate (Januvia), 100 MG PO DAILY Scheduled PRN Albuterol (Ventolin Hfa), 2 PUFFS INH Q4 PRN PRN for SOB/Wheezing Problem List Medical Problems: (1) Ascites (2) Asthma (3) CHF exacerbation (4) Chronic kidney disease, stage 3 (moderate) (5) Cirrhosis (6) Diabetes mellitus (7) HTN (hypertension) (8) Hypertension (9) Leg edema (10) Microscopic hematuria (11) Nephrotic syndrome (12) Obesity Surgical / Medical History Hx Cardiac Surgery: Yes (HEART MONITOR PLACED) Hx Abdominal Surgery: No Hx Cancer Surgery: No Hx Thoracic Surgery: No Hx Orthopedic: Yes (INFECTED LEFT FOOT) Hx Urinary Tract Surgery: No HX Other Surgery: No Past Medical/Surgical History: Diabetes, Heart Disease, High Cholesterol, Hypertension, Kidney Disease Family History Cancer Diabetes mellitus Hypertension Social History Smoking Status: Never Smoker Hx Tobacco Use In Past Year?: No Hx Alcohol Use - Type & Amnt: No Hx Substance Use -Type & Amnt: No Review of Systems Constitutional: + fatigue, No chills, No fever, No malaise Skin: No change in color Eyes: No visual changes ENMT: No sore throat Respiratory: + GLORIA, + orthopnea, + short of breath, No cough, No hemoptysis Cardiovascular: + edema, No chest pain, No intermittent claudication, No palpitations, No syncope Gastrointestinal: No abdominal pain, No nausea, No vomiting Neurologic: No dizziness, No headache, No numbness, No tingling Physical Exam Constitutional: General Apperance: well-nourished, well-developed, obese Level of Distress: NAD, Psychiatric: Mental Status: active & alert, normal mood, normal affect Orientation: oriented except where noted, to time, to place, to person Memory: recent memory normal, remote memory normal Head: normocephalic, atraumatic Eyes: EOM: EOMI ENMT: normal ENT inspection, hearing grossly normal Neck: supple, trachea midline Lungs: Respiratory effort: normal Auscultation: no rhonchi, clear Cardiovascular: Apical Impulse: not displaced Heart Auscultation: RRR, no rubs, no gallops Peripheral Pulses: Pulses: full and equal, in all extremities except if noted Bruits: none appreciated Carotid Pulse: normal on the left, normal on the right Brachial Pulses: normal on the left, normal on the right. Excellent LUE AVF thrill/bruit. Mild local ecchymosis noted. No hematoma. Radial Pulse: normal on the left, normal on the right Femoral Pulse: decreased on the left, decreased on the right Posterior Tibialis Pulse: decreased on the left, decreased on the right Dorsalis Pedis Pulse: decreased on the left, decreased on the right Abdomen: Bowel Sounds: normal Inspection & Palpation: soft, non-distended, no tenderness, guarding & rebound Musculoskeletal: normal strength (5/5 throughout), normal tone Extremities: Upper Right: no cyanosis, no varicosities, no edema Upper Left: no cyanosis, no varicosities, no edema Lower Right: no cyanosis, no varicosities, no palpable cord, no edema Lower Left: no cyanosis, no varicosities, no palpable cord, no edema Neurologic: Cranial Nerves: grossly intact Sensation: grossly intact Assessment and Plan Imp: ESRD on HD, malfunctioning LUE AVF Plan: Patient admitted for a fistulogram with possible intervention. I have discussed the risks options and benefits of the procedure with the patient. The patient understands the risks options and benefits and agrees to the procedure.
[2017-10-29 15:43] VITALS: Ht 185.4 cm; Wt 115.9 kg
[~2017-10-30] VITALS: Ht 185.4 cm; Wt 115.9 kg
[~2017-10-30 10:29] MED LIST changes: +CALC500C3 PO; -CALC667C4 PO; -FENTANYL CITRATE INJ 50 MCG/1 ML 2 ML VIAL IV ONE; -FENTANYL CITRATE INJ 50 MCG/1 ML 2 ML VIAL ONE; +LEVE250T PO; -LIDOCAINE HCL 1% 20 ML VIAL INJ ONE; -METO100T14 PO; -MIDAZOLAM HCL 1 MG/ML 2ML VIAL IV ONE; -MIDAZOLAM HCL 1 MG/ML 2ML VIAL ONE; +NRV/5 PO; -OPTIRAY 300 IV ONE; -QUET1TAB30 PO; -SENN-61 PO; +SODIUM CHLORIDE 0.9% 1000ML 1,000 ML IV SCH
[2017-10-30] MEDS ORDERED: D5W AND 1/4NSS 1000 ML IV SCH (11:15)
--- NOTE | 2017-10-30 11:36 | History & Physical Bridge Note ---
H&P Re-Evaluation Bridge Note: I have examined the patient, reviewed the History & Physical and in the interval since the performance of the History & Physical I have noted the following changes of clinical significance: No changes noted
[2017-10-30 11:37] VITALS: BP 184/93; PULSE 72; TEMP 36.5; O2SAT 93
--- NOTE | 2017-10-30 11:39 | Pre Sedation Assessment ---
Pre Sedation Assessment General Date of Sedation: Oct 30, 2017. Review Cardiovascular: regular rate, rhythm Lungs: lungs clear Pre-Sedation Airway Assessment Smoking Status: Never Smoker Mallampati Classification: Class I ASA Classification: Class III NPO Status Date of Last Intake of Fluids: Oct 29, 2017 Time of Last Intake of Fluids: 17:30 Date of Last Intake of Solids: Oct 29, 2017 Time of Last Intake of Solids: 17:30 Notes The planned sedation has been discussed with the patient. Informed Consent was obtained. I have identified the patient, determined the appropriateness of sedation and have assessed the patient immediately prior to the procedure. All medicine(s) and interventions are by my order.
[2017-10-30 12:01] LABS: HEMATOCRIT 35.6 % (42-52); HEMOGLOBIN 11.2 g/dL (14.0-18.0); MEAN CELL VOLUME 94.2 fL (80-100); MEAN CORPUSCULAR HEMOGLOBIN 29.6 pg (25-34); MEAN PLATELET VOLUME 10.3 fL (7.4-10.4); PLATELET COUNT 227 K/uL (130-400); RED CELL DISTRIBUTION WIDTH CV 14.6 % (11.5-14.5); RED CELL DISTRIBUTION WIDTH SD 50.3 fL (36.4-46.3); WHITE BLOOD COUNT 7.27 K/uL (4.8-10.8)
[2017-10-30 12:12] LABS: MEAN CORPUSCULAR HGB CONC 31.5 g/dl (32-36)
[2017-10-30 12:21] LABS: CREATININE 3.36 mg/dl (0.60-1.40); POTASSIUM 4.3 mmol/L (3.5-5.1)
[2017-10-30] MEDS ORDERED: FENTANYL CITRATE INJ 50 MCG/1 ML 2 ML VIAL ONE (13:03)
[2017-10-30] MEDS ORDERED: MIDAZOLAM HCL 1 MG/ML 2ML VIAL ONE (13:04)
[2017-10-30] MEDS ORDERED: LIDOCAINE HCL 1% 20 ML VIAL INJ ONE (13:43)
[2017-10-30] MEDS ORDERED: MIDAZOLAM HCL 1 MG/ML 2ML VIAL IV ONE (13:50)
[2017-10-30] MEDS ORDERED: FENTANYL CITRATE INJ 50 MCG/1 ML 2 ML VIAL IV ONE (13:50)
[2017-10-30] MEDS ORDERED: OPTIRAY 300 IV ONE (14:00)
--- NOTE | 2017-10-30 14:08 | [facility] Post Operative Brief Note ---
Immediate Operative Summary Operative Date Oct 30, 2017. Pre-Operative Diagnosis malfunctioning fistula Post-Operative Diagnosis venous stenosis Procedure(s) Performed Fistulogram, Percutaneous Transluminal Angioplasty Venous, Moderate Concious Sedation [address] Snell Game Agent Surgeon(s) none Estimated Blood Loss 10 ml Findings Consistent with Post-Op Diagnosis Specimens none Anesthesia Type IV Sedat Cons RN Only Complication(s) none Disposition Disposition:
--- NOTE | 2017-10-30 14:10 | Discharge Instructions ---
Discharge Instructions Date of Service Oct 30, 2017. Visit Reason for Visit: End Stage Renal Disease Discharge Discharge Diagnosis / Problem: Malfunctioning fistula with venous stenosis Discharge Goals Goal(s): Therapeutic intervention Activity Recommendations Activity Limitations: per Instructions/Follow-up section Anesthesia . Post Anesthesia Instructions: If you have had General Anesthesia or IV Sedation: * Do not drive today. * Resume driving when surgeon permits. * Do not make important decisions or sign legal documents today. * Call surgeon for: 1. Temperature elevations greater than 101 degrees F. 2. Uncontrollable pain. 3. Excessive bleeding. 4. Persistent nausea and vomiting. 5. Medication intolerance (nausea, vomiting or rash). * For nausea and vomiting use only clear liquids such as: tea, soda, bouillon until nausea subsides, then gradually increase diet as tolerated. * If you have any concerns or questions, call your surgeon's office. If physician is unavailable and it is an emergency, call 911 or go to the nearest emergency room. . Instructions / Follow-Up Instructions / Follow-Up Call [phone] with any questions or concerns. SPECIAL CARE INSTRUCTIONS: Medications: * Continue to take your medications as directed. If you have been given a prescription for Plavix, please fill it immediately and take as directed. Incision Care: * Your puncture site may have some bruising and minor swelling for about one week. * You will have a small dressing covering your puncture site. You may remove the dressing after 24 hours and shower. You may let the warm soapy water run over it, but be sure to dry the puncture site well and keep it dry. * DO NOT IMMERSE THE INCISION IN A TUB/POOL/etc. UNTIL HEALED. * Puncture sites should be kept covered with a band-aid until it begins to heal. Restrictions: * Depending on whether you leg or arm was punctured to access the arteries, you will be required to lay flat, hold your arm still, or both, for about 4 hours after the procedure to prevent bleeding. * Limit your activity for the first 48 hours. You may walk and go up and down steps. Avoid excessive bending or movement at the puncture site. Possible Complications: * Excessive Swelling - after blood flow is improved you may notice increased swelling in the lower legs. This is a normal response. This usually depends on the amount of blockages in the leg, how long they have been there prior to your procedure and how much blood flow was restored. Elevating your legs will help to improve this. Please notify our office ([phone] ) if the swelling does not go away after lying in bed overnight. * Infection/Drainage/Bleeding - Drainage or bleeding from the puncture site should be minimal. If you have excessive bleeding or drainage, call our office ([phone]) right away. * Pain - You may experience some mild pain or soreness at your puncture site. If your pain does not improve, please contact our office ([phone]). Call your doctor and seek emergent treatment if you develop: * Temperature above 101 degrees * Any fever or chills * Any redness or purulent drainage from the puncture site * Any new dusky/blue colored toes or feet with coolness or sharp or aching pain. SKIN IRRITATION: * You may experience some redness and/or swelling in the area where radiation was administered. If any skin irritation occurs, please contact your family physician. FOLLOW UP VISIT: Keep any scheduled doctor appointments. Diet Recommendations Recommended Home Diet: resume previous diet Procedures Procedures Performed: Fistulogram, Percutaneous Transluminal Angioplasty Venous, Moderate Concious Sedation 1350 to 1404 Pending Studies Studies pending at discharge: no Medical Emergencies . Who to Call and When: Medical Emergencies: If at any time you feel your situation is an emergency, please call 911 immediately. . Non-Emergent Contact Non-Emergency issues call your: Surgeon . . "Provider Documentation" section prepared by Zachary Snell. .
--- NOTE | 2017-10-30 14:19 | [facility] Operative Report ---
Operative Report Operative Date Oct 30, 2017. Pre-Operative Diagnosis malfunctioning fistula Post-Operative Diagnosis venous stenosis Procedure(s) Performed Fistulogram, Percutaneous Transluminal Angioplasty Venous, Moderate Concious Sedation [address] Snell Band Saw Runner Surgeon(s) none Estimated Blood Loss 10 ml Findings significant venous stenosis Specimens none Anesthesia Local with sedation Complication(s) None Disposition Indications This is a 62-year-old gentleman with a left upper arm fistula. He was found to have decreasing flow volumes. Fistulogram was recommended with possible intervention. I have discussed the risks options and benefits of the procedure with the patient. The patient understands the risks options and benefits and agrees to the procedure. Description of Procedure The patient was taken to the angiogram suite and placed in the supine position. The left arm was then prepped and draped in a sterile manner. Local anesthetic was administered and a percutaneous puncture was then made of the proximal portion of the left arm AV fistula using micropuncture technique. Micropuncture wire and sheath were then inserted. A fistulogram was then performed. Fistulogram showed that the venous outflow was patent however there was a significant stenosis in the upper arm outflow vein. The rest of the central veins are widely patent. We decided to dilate this area. The micropuncture sheath was exchanged to a 6 Italian sheath over a wire. An 035 Glidewire was then passed through the venous stenosis. The stenosis was then dilated with an 8 x 60 Remlap balloon. There was still significant residual stenosis noted. We therefore dilated the area again with an 8 x 40 Conquest balloon. Much better results were seen and a better thrill was felt. The balloon and wire were then pulled. The sheath was then pulled and pressure was applied. Adequate hemostasis was obtained. The patient left the angiogram suite in good condition and tolerated the procedure well. I attest to the content of the Intraoperative Record and any orders documented therein. Any exceptions are noted below.
--- NOTE | 2017-10-30 14:20 | Post Sedation Assessment ---
Post Sedation Assessment General Date of Sedation Oct 30, 2017. Vital Signs: Vital Signs Past 12 Hours Date Time Temp Pulse Resp B/P (MAP) Pulse Ox O2 Delivery O2 Flow Rate FiO2 10/30/17 14:05 72 18 195/102 97 Room Air 10/30/17 14:00 Mask 4 10/30/17 13:55 Mask 4 10/30/17 13:50 Mask 4 10/30/17 13:45 Mask 4 10/30/17 13:38 Mask 4 10/30/17 11:37 36.5 72 20 184/93 (123) 93 Room Air Post Procedure Recovery Score Activity: (2) Moves 4 extremities * Respiration: (2) Deep breath/cough Circulation: (2) +/-20% PreAnes Value Consciousness: (2) Fully Awake Oxygen Saturation: (2) > 92% On Room Air Post Anesthesia Score: 10 Discharge Sedation Level of Care: Fast Track Phase II Post Sedation Plan On clinical assessment, the patient appears to have tolerated the sedation without complications. Patient is recovering as anticipated. Patient will continue to be monitored by nursing and may be discharged when sedation discharge criteria are met per below protocol. Upon Completions of procedure and additional 15 minutes continue every 5 minute vital signs and the P.A.R. score; then discharge to a Phase I or Fast Track to Phase II per the following guidelines: * Discharge Patient to appropriate Phase II area if PAR is 8 or greater or return to pre- procedure baseline. The post - procedure orders will be as directed. * If PAR score is less than 8 or not return to pre-procedure baseline then patient will follow Phase I monitoring till PAR is reached for Phase II. The Phase I may be done in procedure room or may call to secure a Phase I area. * If naloxone or flumazenil are used for reversal, hold in Phase I for an additional 60 -120 minutes before discharge to Phase II. Please call the Sedation Physician to re-evaluate and complete post-note for discharge to Phase II area. Do NOT discharge from procedure sedation or Phase 1 until post- sedation evaluation note is complete by procedure /sedation MD Sedation Discharge Instructions to be given to the patient at discharge to home.
[2017-10-30 14:37] VITALS: BP 186/94; PULSE 61; TEMP 36.8; O2SAT 100
[2017-10-30 14:55] VITALS: BP 154/94; PULSE 60; O2SAT 100
== END 2017-10-30 15:05 | disposition home or self-care (01) ==
LOC: C.ACU 10:29
PROVIDERS: ATTEND Surgery Vascular Surgery
DX: T82.598A Other mechanical complication of other cardiac and vascular devices and implants, initial encounter (principal); Y83.2 Surgical operation with anastomosis, bypass or graft as the cause of abnormal reaction of the patient, or of later complication, without mention of misadventure at the time of the procedure; I13.11 Hypertensive heart and chronic kidney disease without heart failure, with stage 5 chronic kidney disease, or end stage renal disease; N18.6 End stage renal disease; E11.9 Type 2 diabetes mellitus without complications; E78.00 Pure hypercholesterolemia, unspecified; Z79.82 Long term (current) use of aspirin; Z79.4 Long term (current) use of insulin; Z83.3 Family history of diabetes mellitus; Z82.49 Family history of ischemic heart disease and other diseases of the circulatory system